=== PATIENT | female | born 1965 | race Two or more races ===

== ENCOUNTER 2021-12-25 15:35 | Emergency (ER) | payer SELFPAY ==
[~2021-12-25] VITALS: Ht 170.2 cm; Wt 78.0 kg
[2021-12-25 15:37] VITALS: BP 114/68
== END 2021-12-25 20:00 | disposition home or self-care (01) ==
LOC: ER 15:35
DX: Z04.89 Encounter for examination and observation for other specified reasons (principal); G40.909 Epilepsy, unspecified, not intractable, without status epilepticus
CPT/HCPCS: 99281